=== PATIENT | male | born 1965 | race Caucasian/White ===

== ENCOUNTER 2019-10-19 06:56 | Day surgery (SDC) | payer BC ==
[~2019-10-19] VITALS: Ht 172.7 cm; Wt 118.2 kg
[2019-10-19] VITALS (12 sets, daily range): BP systolic 128–168; BP diastolic 85–112
[~2019-10-19 06:56] MED LIST: AMLO5TAB9 PO; BUSP30TA2 PO; FLUO20CA45 PO; HYDR25TA4 PO; LOSA100T57 PO; LOVA20TA2 PO; TRM50T PO
[2019-10-19] MEDS ORDERED: BUP/EPI 0.5% 1:200,000 (SENSORCAINE) 30 ML VIAL ONE (07:06)
[2019-10-19] MEDS ORDERED: ceFAZolin 2 GM/50 ML NS 50 ML IV ONE (07:15)
[2019-10-19] MEDS ORDERED: CATHETER FLUSH 10 ML SYR IV PRN (07:30)
[2019-10-19 07:35] LABS: BASOPHILS % (AUTO) 0 % (0-10); EOSINOPHILS # (AUTO) 0.3 10^3/uL (0.0-0.3); EOSINOPHILS % (AUTO) 4 % (0-10); HEMATOCRIT 46 % (40-54); HEMOGLOBIN 15.8 G/DL (13.3-17.7); LYMPHOCYTES # (AUTO) 2.4 X 10^3 (1.0-4.0); LYMPHOCYTES % (AUTO) 34 % (12-44); MEAN CORPUSCULAR HEMOGLOBIN 29 PG (25-34); MEAN CORPUSCULAR HGB CONC 34 G/DL (32-36); MEAN CORPUSCULAR VOLUME 84 FL (80-99); MEAN PLATELET VOLUME 9.7 FL (7.4-10.4); MONOCYTES # (AUTO) 0.7 X 10^3 (0.0-1.0); MONOCYTES % (AUTO) 10 % (0-12); NEUTROPHILS # (AUTO) 3.6 X 10^3 (1.8-7.8); NEUTROPHILS % (AUTO) 51 % (42-75); PLATELET COUNT 235 10^3/uL (130-400); RED CELL DISTRIBUTION WIDTH 13.7 % (10.0-14.5); WHITE BLOOD COUNT 7.1 10^3/uL (4.3-11.0)
[2019-10-19] MEDS: LACTATED RINGERS 1,000 ML IV PRN ×2 (07:35→09:35)
[2019-10-19] MEDS ORDERED: SEVOFLURANE (ULTANE) 15 ML INHAL SOLN ONE (07:40)
[2019-10-19] MEDS ORDERED: LIDOCAINE PF 2% 5 ML (XYLOCAINE) VIAL ONE (07:40)
[2019-10-19] MEDS ORDERED: proPOfol 200 MG/20 ML (DIPRIVAN) VIAL IV ONE (07:40)
[2019-10-19] MEDS ORDERED: GLYCOPYRROLATE 0.2 MG/ML (ROBINUL) 2 ML VIAL ONE (07:40)
[2019-10-19] MEDS ORDERED: DEXAMETHASONE 10 MG/ML (DECADRON) 1 ML VIAL ONE (07:40)
[2019-10-19] MEDS ORDERED: fentaNYL INJECTION 250 MCG/5 ML AMP ONE (07:40)
[2019-10-19] MEDS ORDERED: NEOSTIGMINE 1 MG/ML 5 ML SYRINGE ONE (07:40)
[2019-10-19] MEDS ORDERED: ONDANSETRON 4 MG/2 ML (SDV) Z0FRAN ONE (07:40)
[2019-10-19] MEDS ORDERED: ROCURONIUM 10 MG/ML 5 ML SYRINGE IV ONE ×2 (07:40→10:02)
[2019-10-19] MEDS ORDERED: MIDAZOLAM 2 MG/2 ML (VERSED) VIAL ONE (07:40)
--- NOTE | 2019-10-19 08:25 | Progress Note-Pre Operative ---
Pre-Operative Progress Note H&P Reviewed The H&P was reviewed, patient examined and no changes noted. Time Seen by Provider: 08:21 Date H&P Reviewed: Oct 19, 2019 Time H&P Reviewed: 08:22 Pre-Operative Diagnosis: Left inguinal Hernia, ??right inguinal hernia ELEANOR LYON DO Oct 19, 2019 08:25
--- NOTE | 2019-10-19 10:32 | Progress Note-Post Operative ---
Post-Operative Progess Note Surgeon (s)/Plaque Maker (s) Surgeon ELEANOR LYON DO Plaque Maker: Yesy Pre-Operative Diagnosis Left inguinal Hernia, ??right inguinal hernia Post-Operative Diagnosis Incarcerated Direct Left inguinal hernia Procedure & Operative Findings Date of Procedure 10/19/19 Procedure Performed/Findings Robotic Assisted Laparoscopic Left Inguinal hernia Anesthesia Type GET Estimated Blood Loss Estimated blood loss (mL): appx 20ml Specimens/Packing Specimens Removed none ELEANOR LYON DO Oct 19, 2019 10:32
[2019-10-19] MEDS ORDERED: ACHD5005 PO (10:33)
--- NOTE | 2019-10-19 10:34 | Discharge Inst-Surgical ---
Discharge Inst-Surgical Depart Medication/Instructions New, Converted or Re-Newed RX: RX Given to Pt/Family Patient Instructions Follow up Appt: Make appointment for 1 week. [phone] Instructions: No lifting greater than 20 pounds. No strenuous activity. May shower in 24 hours, no tub bath or soaking. Use incentive spirometer at home as directed. No Smoking Skin/Wound Care: May remove bandages in am. You need to leave the Dermabond on incision it will fall off on it's own. Symptoms to Report: Appetite Changes, Extremity Discoloration, Numbness/Tingling, Swelling Increased, Bleeding Excessive, Eyesight Changes, Pain Increased, Urine Color Change, Constipation(Persistent), Fever over 101 degree F, Pain/Pressure in chest, Urinating Difficulty, Cough Up/Vomit Blood, Heart Beat Irreg/Pounding, Pain/Pressure in jaw, Cramps in feet or legs, Lightheadedness, Pain/Pressure in shoulder, Diarrhea(Persistent), Memory Changes Suddenly, Questions/Concerns, Weight gain consecutive days, Dizziness/Fainting, Nausea/Vomiting, Shortness of Breath, Weight gain over 2 pounds If questions or concerns contact your physician Or seek help at emergency department. Activity Activity as Tolerated: Yes Activity Instructions: Avoid Stress to Incision Driving Instructions: No Driving/Refer to Dr. Sparks Discharge Diet: No Restrictions Diet After 24 Hours: Clear Liquid if Nauseous If Any Problems/Questions/Issu: Contact Your Physician, Go to Emergency Room Skin/Wound Care Infection Signs and Symptoms: Increased Redness, Foul Odor of Wound, Increased Drainage, Skin Itchy or Has a Rash, Increased Swelling, Temperature Above 101 F Wound Care Comment: heating pad to shoulder or neck tonight for pain. May get bruising into penis and scrotum Bathing Instructions: Shower Stitches/Danica/Dermabond Dis: Dermabond Ice Pack: Ice On and Off Site (incision sites as needed) ELEANOR LYON DO Oct 19, 2019 10:34
[2019-10-19] MEDS ORDERED: morphine INJ 10 MG/ML 1ML (SYR OR VIAL) ONE (11:10)
[2019-10-19] MEDS ORDERED: ONDANSETRON 4 MG/2 ML (SDV) Z0FRAN IVP PRN (11:15)
[2019-10-19] MEDS ORDERED: morphine INJ 10 MG/ML 1ML (SYR OR VIAL) IVP ONE (11:15)
[2019-10-19] MEDS ORDERED: MEPERIDINE (DEMEROL) INJ 50 MG/ML IVP ONE (11:15)
[2019-10-19] MEDS ORDERED: HYDROmorphone 2 MG/ML VIAL (DILAUDID) ONE (11:29)
[2019-10-19] MEDS ORDERED: HYDROmorphone 2 MG/ML VIAL (DILAUDID) IV ONE (11:45)
--- NOTE | 2019-10-19 15:41 | Anesthesia-General Post-Op ---
General Patient Condition Mental Status/LOC: Same as Preop Cardiovascular: Satisfactory Nausea/Vomiting: Absent Respiratory: Satisfactory Pain: Controlled Complications: Absent Post Op Complications Complications None Follow Up Care/Instructions Patient Instructions None needed. Anesthesia/Patient Condition Patient Condition Patient is doing well, no complaints, stable vital signs, no apparent adverse anesthesia problems. No complications reported per nursing. DELFIN CHAU CRNA Oct 19, 2019 15:41
--- NOTE | 2019-10-19 16:53 | OPERATIVE REPORT ---
DATE OF SERVICE: 10/19/2019 PREOPERATIVE DIAGNOSIS: Left inguinal hernia. POSTOPERATIVE DIAGNOSIS: Left inguinal hernia, but incarcerated with fat. SURGEON: Eleanor Meza DO MULE RIDER: Zuhair Hayward DO ANESTHESIA: General endotracheal tube. SPECIMENS: None. BLOOD LOSS: Less than 20 mL. FLUIDS: Per anesthesia. POSTOPERATIVE CONDITION: Stable. INDICATION FOR PROCEDURE: The patient is a 53-year-old male who has pain and bulge in left inguinal region diagnosed left inguinal hernia, wanted a robotic laparoscopic hernia repair. FINDINGS: The patient had a lot of fat incarcerated into looked like possibly direct inguinal hernia. Pictures taken. PROCEDURE NOTE: After informed consent was obtained, the patient was brought to the operating room, placed on the operating table in supine position, sterilely prepped and draped in normal fashion. Local lidocaine was used to infiltrate the skin above the umbilicus at the previous supraumbilical incision, made an incision with #11 blade, carried down through the skin into and subcutaneous tissue, deepened down to subcutaneous tissue with Bovie electrocautery down to fascia. Fascia was incised with Bovie electrocautery, bluntly entered the abdomen, swept a finger around, placed 0 Vicryl [id number] suture and placed limited trocar port under direct visualization. Created pneumoperitoneum and then placed 2 more ports in normal fashion using local lidocaine, 11 blade for stab incision and then using an 8 mm trocar port for the robot. Advanced under direct visualization. Once these were about 10 cm from the midline, one on the right and one on the left, once these were in then docked the robot, placed the patient in Trendelenburg and then started taking down the peritoneum, taking down transversely about 5 cm from the inguinal canal and then going down right along the medial umbilical ligament to create a hockey stick incision and carefully pushed in the preperitoneal fascia out away and pushing up of the other tissue going down medially and identifying Samuel's ligament then came across and found the direct inguinal hernia and started pulling out the fat, pulled out large amount of fat. Once this was out then continued freeing up freeing the peritoneum down so we could place a piece of mesh. Once we had everything freed up, took pictures and then elected to place an extra-large Bard 3DMax mesh. It was sutured at the Samuel's ligament with a 3-0 Vicryl suture, laid in nicely and then closed the peritoneum with a V-Loc suture closing from the lateral aspect getting tagging some of the mesh to hold in place and then running across the V-Loc and then down the hockey stick incision to close this, it closed nicely. Picture taken. At this point, then undocked the robot, allowed pneumoperitoneum to escape and then closed the supraumbilical incision with 0 Vicryl suture previously placed. Copiously irrigated incisions then closed the two 8 mm trocar port incisions with a 4-0 undyed Monocryl, 2 interrupted subcuticular stitches, closed supraumbilical incision with 3 interrupted 4-0 undyed Monocryl subcuticular stitches. Area was cleaned and dried and then Dermabond placed and Band-Aids. The patient tolerated the procedure. Sponge, instrument and needle count correct at the end of the case. Dr. Hayward assisted in this case helping to make incisions, close incisions and identifying anatomy. Job ID: [id number] DocumentID: [id number] Dictated Date: 10/19/2019 10:30:01 [employer]um[employer] Applier Date: 10/19/2019 16:53:02 Dictated By: ELEANOR MEZA DO
== END 2019-10-19 13:00 | disposition home or self-care (01) ==
LOC: SDC 06:56
PROVIDERS: ATTEND Surgery
DX: K40.30 Unilateral inguinal hernia, with obstruction, without gangrene, not specified as recurrent (principal); K21.9 Gastro-esophageal reflux disease without esophagitis; I10 Essential (primary) hypertension; E78.5 Hyperlipidemia, unspecified; E66.9 Obesity, unspecified; G47.33 Obstructive sleep apnea (adult) (pediatric); F41.9 Anxiety disorder, unspecified; Z68.39 Body mass index [BMI] 39.0-39.9, adult; Z79.899 Other long term (current) drug therapy; Z90.89 Acquired absence of other organs
CPT/HCPCS: 36415; 85025; 87081

== ENCOUNTER → 2020-05-21 | Outpatient (CLI) | payer BC ==
[~2020-05-21] MED LIST changes: +ACHD5005 PO; -FLUO20CA45 PO; +FLUO20CA46 PO
--- NOTE | 2020-05-21 16:04 | Diagnostic Imaging Report ---
INDICATION: Cough and shortness of breath. PA and lateral chest. FINDINGS: Heart size and pulmonary vascularity are normal. Lungs are clear. There are no effusions or pneumothoraces. IMPRESSION: No acute abnormalities in the chest. Dictated by: Dictated on workstation # [id number]
== END ==
LOC: RAD 14:59
PROVIDERS: ATTEND Family Medicine
DX: R06.02 Shortness of breath (principal); R05 Cough
CPT/HCPCS: 71046

== ENCOUNTER → 2020-05-29 | Outpatient (CLI) | payer BC ==
[~2020-05-29] MED LIST changes: +RT-ALBUTEROL SULF 2.5 MG/3 ML PRE-MIX VIAL INH ONE
== END ==
LOC: RT 14:58
PROVIDERS: ATTEND Family Medicine
DX: R06.00 Dyspnea, unspecified (principal)
CPT/HCPCS: 94060; 94726; 94729

== ENCOUNTER 2020-06-12 05:43 | Outpatient (CLI) | payer BC ==
[~2020-06-12] VITALS: Ht 172.7 cm; Wt 123.2 kg
[~2020-06-12 05:43] MED LIST changes: -RT-ALBUTEROL SULF 2.5 MG/3 ML PRE-MIX VIAL INH ONE
== END 2020-06-12 12:00 ==
LOC: PREOP 05:43
PROVIDERS: ATTEND Surgery
DX: Z01.818 Encounter for other preprocedural examination (principal)

== ENCOUNTER 2020-06-18 08:06 | Day surgery (SDC) | payer BC ==
[~2020-06-18] VITALS: Ht 172.7 cm; Wt 123.2 kg
[2020-06-18] MEDS ORDERED: LACTATED RINGERS 1,000 ML IV ONE (08:10)
[2020-06-18] MEDS ORDERED: LACTATED RINGERS 1,000 ML IV STA (08:17)
--- NOTE | 2020-06-18 08:23 | Progress Note-Pre Operative ---
Pre-Operative Progress Note H&P Reviewed The H&P was reviewed, patient examined and no changes noted. Time Seen by Provider: 08:21 Date H&P Reviewed: Jun 18, 2020 Time H&P Reviewed: 08:22 Pre-Operative Diagnosis: Hx of Polyps ELEANOR LYON DO Jun 18, 2020 08:23
[2020-06-18] MEDS ORDERED: ASPI-808 PO (08:33)
[2020-06-18 08:38] VITALS: BP 122/86
--- NOTE | 2020-06-18 08:46 | Progress Note-Post Operative ---
Post-Operative Progess Note Surgeon (s)/Manager Ct (s) Surgeon ELEANOR LYON DO Manager Ct: CARMEN Osborn Pre-Operative Diagnosis Hx of Polyps Post-Operative Diagnosis colon polyp Int hem Procedure & Operative Findings Date of Procedure 06/18/20 Procedure Performed/Findings Colon with hot bx Anesthesia Type IV sedation by SUPERVISOR INSPECTION ROOM Estimated Blood Loss Estimated blood loss (mL): scant Specimens/Packing Specimens Removed Descending colon polyp ELEANOR LYON DO Jun 18, 2020 08:46
--- NOTE | 2020-06-18 08:46 | Endoscopy Discharge Instruct ---
Endo Procedure/Findings Findings 1.: Polyp 2.: Internal Hemorrhoids Discharge Instructions - Activity: You might feel a little sleepy until tomorrow. This is due to the medicine you received to relax you. Until tomorrow, you should: NOT drive a car, operate machinery or power tools. NOT drink any alcoholic beverages. NOT make any important decisions or sign importortant papers. Do not return to work until tomorrow, unless otherwise instructed. Resume previous activities tomorrow. Diet: Start by taking liquids. If you tolerate liquids, advance to solid food. 1.: Colonscopy in 5 years Notify Physician - If you experience excessive bleeding, unusual abdominal pain, fever, or chest pain, contact your doctor immediately. ELEANOR LYON DO Jun 18, 2020 08:46
[2020-06-18] MEDS ORDERED: MIDAZOLAM 2 MG/2 ML (VERSED) VIAL ONE (09:02)
[2020-06-18] MEDS ORDERED: PROPOFOL INJECTION 50 ML IV ONE (09:02)
[2020-06-18 09:31] VITALS: BP 116/72
[2020-06-18 09:35] VITALS: BP 105/63
[2020-06-18 10:05] VITALS: BP 122/82
--- NOTE | 2020-06-18 10:08 | NUR ---
PT READY TO BE D/C- WAITING ON RIDE FROM [facility].
[2020-06-18 10:36] VITALS: BP 122/82
--- NOTE | 2020-06-18 12:37 | Anesthesia-General Post-Op ---
MAC Patient Condition Mental Status/LOC: Same as Preop Cardiovascular: Satisfactory Nausea/Vomiting: Absent Respiratory: Satisfactory Pain: Controlled Complications: Absent Post Op Complications Complications None Follow Up Care/Instructions Patient Instructions None needed. Anesthesiology Discharge Order Discharge Order Patient is doing well, no complaints, stable vital signs, no apparent adverse anesthesia problems. No complications reported per nursing. TRENT WIN CRNA Jun 18, 2020 12:37
--- NOTE | 2020-06-19 05:25 | OPERATIVE REPORT ---
DATE OF SERVICE: 06/18/2020 PREOPERATIVE DIAGNOSES: History of colon polyps. POSTOPERATIVE DIAGNOSES: Diverticula, internal hemorrhoids. PROCEDURE: Colonoscopy. SURGEON: Jackson Meza DO TURNER SPLITTER MACHINE OPERATOR: JUAN Rosas. SPECIMENS: None. BLOOD LOSS: None. FLUIDS: Per anesthesia. POSTOPERATIVE CONDITION: Stable. INDICATION FOR PROCEDURE: The patient is a 54-year-old male who has a history of colon polyps, needed a surveillance colonoscopy. FINDINGS: The patient had some diverticula and internal hemorrhoids, but no polyps found. PROCEDURE NOTE: After informed consent was obtained, the patient was brought to the endoscopy suite, placed in bed in left lateral decubitus position. He was administered IV sedation by the CHILDCARE AIDE who then monitored his vitals the entire time, heart rate, blood pressure and pulse ox and the scope was inserted, pushed all the way into about 160 cm, able to get to the cecum. On the way in, noted some diverticula, took a picture. Once in the cecum, took a picture of appendiceal orifice and then slowly withdrew the scope insufflating to look circumferential at blancas looking at the cecum, up the ascending colon to the hepatic flexure and then down the transverse colon, splenic flexure, into the descending colon down in sigmoid and finally into the rectum, retroflexed in rectal vault, saw some very minimal internal hemorrhoids, took a picture and then removed the scope. The patient tolerated the procedure. He was recovered in endoscopy suite. Job ID: [id number] DocumentID: [id number] Dictated Date: 06/18/2020 18:41:16 Place Change Roof Bolter Date: 06/19/2020 05:25:10 Dictated By: JACKSON MEZA DO
== END 2020-06-18 10:40 | disposition home or self-care (01) ==
LOC: ENDO 08:06
PROVIDERS: ATTEND Surgery
DX: Z12.11 Encounter for screening for malignant neoplasm of colon (principal); K57.90 Diverticulosis of intestine, part unspecified, without perforation or abscess without bleeding; I10 Essential (primary) hypertension; E78.5 Hyperlipidemia, unspecified; F41.9 Anxiety disorder, unspecified; F32.9 Major depressive disorder, single episode, unspecified; K64.8 Other hemorrhoids; Z86.010 Personal history of colon polyps; Z79.899 Other long term (current) drug therapy

== ENCOUNTER 2021-09-07 20:51 | Emergency (ER) | payer OTHER, BC ==
[~2021-09-07] VITALS: Ht 172 cm; Wt 122.0 kg
[~2021-09-07 20:51] MED LIST changes: +AMLO-250 PO; -AMLO5TAB9 PO; +ASPI-808 PO; -FLUO20CA46 PO; +FLUO20CA48 PO
[2021-09-07] MEDS ORDERED: KETOROLAC 60 MG/2 ML VIAL IM STA (21:16)
--- NOTE | 2021-09-07 21:31 | ED Fall/Injury ---
General Chief Complaint: Chest Wall Stated Complaint: R SIDED RIB PAIN, FELL Nursing Triage Note: PT TO ER BY WC WITH C/O RIB PAIN ON LOWER LEFT AND BACK AFTER A FALL AROUND 1800. PT SAID HE FELL INTO A TRAILER AFTER THE TAILGATE OF A TRUCK CAME UNLATCHED Source: patient Exam Limitations: no limitations History of Present Illness Date Seen by Provider: Sep 07, 2021 Time Seen by Provider: 21:10 Initial Comments Here with report of fall from the back of a pickup truck. He apparently was climbing over the tailgate and was using the tailgate as handhold when it came open. He fell back against a trailer on the left side ribs. No loss of consciousness and no other injury noted or reported. This occurred about 1800. 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 He was able to continue that and was ultimately encouraged to come here by his work. He has not taken anything for pain. Denies other injury or concerns. Believes he likely has a rib fracture. He does have pain with deep breathing but is not short of breath otherwise. Does have history of hypertension and is on losartan. Denies abdominal pain or blood in urine or difficulty with urination. Occurred: this evening (6 PM) Severity: mild, moderate Injuries/Pain Location: chest Context: other Loss of Consciousness: no loss of consciousness Modifying Factors: Worse With Movement (Deep breathing) Associated Symptoms (Fall): No Abdominal Pain; Chest Pain, Muscle Spasms (Chest with deep breathing); No Nausea/Vomiting, No Neck Pain, No Shortness of Air, No Trouble Walking Allergies and Home Medications Allergies Coded Allergies: No Known Drug Allergies (Unverified , 10/14/19) Patient Home Medication List Home Medication List Reviewed: Yes Amlodipine Besylate (Amlodipine Besylate) 5 Mg Tablet, 5 MG PO DAILY, (Reported) Entered as Reported by: JOEL THAKUR on 10/14/19 1146 Aspirin (Aspirin) 325 Mg Tablet, 325 MG PO DAILY, (Reported) Entered as Reported by: BLESSING HERNANDEZ on 06/18/20 0833 Buspirone HCl (Buspirone HCl) 30 Mg Tablet, 30 MG PO BID, (Reported) Entered as Reported by: JOEL THAKUR on 10/14/19 1146 Hydrochlorothiazide (Hydrochlorothiazide) 25 Mg Tablet, 25 MG PO DAILY, (Reported) Entered as Reported by: JOEL THAKUR on 10/14/19 1146 Losartan Potassium (Losartan Potassium) 100 Mg Tablet, 100 MG PO DAILY, (Reported) Entered as Reported by: JOEL THAKUR on 10/14/19 1146 Lovastatin (Lovastatin) 20 Mg Tablet, 20 MG PO DAILY, (Reported) Entered as Reported by: JOEL THAKUR on 10/14/19 1146 Review of Systems Review of Systems Constitutional: see HPI; No chills, No fever Ears, Nose, Mouth, Throat: no symptoms reported Respiratory: No cough; other (Pain with deep breathing) Cardiovascular: chest pain (Left posterior ribs); No palpitations Gastrointestinal: No abdominal pain, No nausea, No vomiting Musculoskeletal: joint pain, muscle pain Skin: see HPI, change in color, lesions (Left posterior ribs) Past Tekyost-X[place]iaf-Utbo[place] Hx Patient Social History Tobacco Use?: No Substance use?: No Alcohol Use?: Unable to obtain Pt feels they are or have been: No Immunizations Up To Date Influenza Vaccine Up-to-Date: No; Not Current First/Initial COVID19 Vaccinat: FEBRUARY 2021 Second COVID19 Vaccination Ziyad: MARCH 2021 COVID19 Vaccine Coding Educator: KERI Seasonal Allergies Seasonal Allergies: No Past Medical History Surgeries: Yes (inguinal hernia x3, hydrocelectomy, ) Appendectomy Respiratory: No Currently Using CPAP: No Cardiac: Yes High Cholesterol, Hypertension Neurological: No Genitourinary: No Gastrointestinal: No Musculoskeletal: No Endocrine: No HEENT: No Cancer: No Psychosocial: Yes Anxiety Integumentary: No Blood Disorders: No Family Medical History Reviewed Nursing Family Hx Physical Exam Vital Signs Vital Signs - First Documented 09/07/21 21:05 Temp 36.9 Pulse 80 Resp 18 B/P (MAP) 154/92 (112) Pulse Ox 96 O2 Delivery Room Air Capillary Refill : Height, Weight, BMI Height: '" Weight: lbs. oz. kg; 41.00 BMI Method: General Appearance: WD/WN, mild distress, obese Neck: non-tender, full range of motion, supple, normal inspection Cardiovascular: regular rate, rhythm, no murmur Respiratory: lungs clear, normal breath sounds Gastrointestinal: non tender, soft Back: no vertebral tenderness, other (Contusion to left posterior rib in the T6 to T8 area) Neurologic/Psychiatric: alert, oriented x 3 Skin: warm/dry, ecchymosis (Ecchymosis in the left posterior ribs area approximately 2 cm vertically by 8 cm horizontally with thin central abrasion consistent with injury of falling against the trailer.) Jordyn Coma Score Best Eye Response: (4) Open Spontaneously Best Verbal Response: (5) Oriented Best Motor Response: (6) Obeys Commands Progress/Results/Core Measures Results/Orders My Orders Orders - JANELLE VEGAS MD Ct Chest Wo (09/07/21 21:16) Ketorolac Injection (Toradol Injection) (09/07/21 21:16) Vital Signs/I&O 09/07/21 21:05 Temp 36.9 Pulse 80 Resp 18 B/P (MAP) 154/92 (112) Pulse Ox 96 O2 Delivery Room Air Blood Pressure Mean: 112 Progress Progress Note : Progress Note Seen and evaluated. I did discuss options for evaluation including chest x-ray and CT. Patient is larger and I do believe it will be difficult to see rib fractures well with x-ray technique. We did discuss CT without contrast as an option. I would prefer to do without contrast as this is isolated injury and not worried about significant bleeding so contrast would not be needed. Contusion, pneumothorax and rib fracture injury will be adequately evaluated with CT scan without contrast so this was chosen to minimize impact from contrast. Toradol 60 mg IM. Monitor patient. 1011: CT shows rib fractures. See report below. Incentive spirometer with teaching given. Go pack of hydrocodone given. Discharged home with return precautions. Patient verbalized understanding instructions and agreement with plan. Diagnostic Imaging Diagonstic Imaging: CT Plain Films/CT/US/NM/MRI: chest Comments NAME: ANNETTE CALDERON [facility] REC#: [id number] PT STATUS: REG ER : 1965 PHYSICIAN: JANELLE VEGAS MD ADMIT DATE: 09/07/21/ER Draft Date of Exam:09/07/21 CT CHEST WO PROCEDURE: CT chest without contrast. TECHNIQUE: Multiple contiguous axial images were obtained through the chest without the use of intravenous contrast. Auto Exposure Controls were utilized during the CT exam to meet ALARA standards for radiation dose reduction. INDICATION: 55-year-old male, rib pain on lower left and back after a fall earlier this evening. Fall into a trailer. CORRELATION: None. FINDINGS: Evaluation of the mediastinal structures is limited given lack of contrast. No suggestion for significant mediastinal hematoma. Calcified lymph nodes in and around the azygos vein and right hilum. The heart size is unremarkable. Scattered coronary artery calcification. No significant pericardial effusion. Thoracic aorta normal in contour. GE junction unremarkable. Minimal atelectasis at the lung bases. No significant contusion, effusion and/or pneumothorax. Two adjacent small sub-5 mm nodules in the subpleural region of right lower lobe. Similar one in lateral aspect of right lower lobe. Additional calcified granulomas in central right lung. Minimally displaced left lateral rib 10 and likely nondisplaced rib 8 and 9 fractures. Minimal amount of adjacent overlying soft tissue contusion. The visualized portion of the upper abdomen is unremarkable. IMPRESSION: Minimally displaced left lateral rib 10 and likely nondisplaced lateral rib 8 and 9 fractures. No left-sided pneumothorax or significant pulmonary contusion. Dictated on workstation # [id number] Dict: 09/07/212145 Trans: 09/07/212156 [facility] [id number] Interpreted by: BRIGIDA LEO DO Electronically signed by: Reviewed: Reviewed by Me Departure Impression Primary Impression: Ribs, multiple fractures Qualified Codes: S22.42XA - Multiple fractures of ribs, left side, initial encounter for closed fracture Disposition: 01 HOME, SELF-CARE Condition: Stable Departure-Patient Inst. Decision time for Depature: 22:12 Referrals: RHYS ADEN MD (PCP/Family) Primary Care Physician Patient Instructions: Blunt Chest Trauma (DC), Rib Fracture (DC) Add. Discharge Instructions: All discharge instructions reviewed with patient and/or family. Voiced understanding. Take medication as directed. You may take Tylenol/acetaminophen 1000 mg every 6-8 hours as needed for pain if you are not taking the prescribed pain medicine. Do not take both at the same time as they both have acetaminophen in them. You may also take ibuprofen 600 mg every 8 hours as needed for pain. Use the incentive spirometer several times per hour while awake. You may use ice packs to area of concern 20 minutes/h as needed to reduce swelling and pain. Return for worse pain, fever, vomiting, blood in your urine or stool, coughing up blood, weakness, breathing problems or other concerns as needed. Scripts Hydrocodone Bit/Acetaminophen (HYDROcodone/APAP 5 MG/325 MG TAB) 1 Tab Tab 1 TAB PO Q6H for Pain, #16 TAB 0 Refills Prov: JANELLE VEGAS MD 09/07/21 JANELLE VEGAS MD Sep 07, 2021 21:31
--- NOTE | 2021-09-07 21:58 | Diagnostic Imaging Report ---
PROCEDURE: CT chest without contrast. TECHNIQUE: Multiple contiguous axial images were obtained through the chest without the use of intravenous contrast. Auto Exposure Controls were utilized during the CT exam to meet ALARA standards for radiation dose reduction. INDICATION: 55-year-old male, rib pain on lower left and back after a fall earlier this evening. Fall into a trailer. CORRELATION: None. FINDINGS: Evaluation of the mediastinal structures is limited given lack of contrast. No suggestion for significant mediastinal hematoma. Calcified lymph nodes in and around the azygos vein and right hilum. The heart size is unremarkable. Scattered coronary artery calcification. No significant pericardial effusion. Thoracic aorta normal in contour. GE junction unremarkable. Minimal atelectasis at the lung bases. No significant contusion, effusion and/or pneumothorax. Two adjacent small sub-5 mm nodules in the subpleural region of right lower lobe. Similar one in lateral aspect of right lower lobe. Additional calcified granulomas in central right lung. Minimally displaced left lateral rib 10 and likely nondisplaced rib 8 and 9 fractures. Minimal amount of adjacent overlying soft tissue contusion. The visualized portion of the upper abdomen is unremarkable. IMPRESSION: Minimally displaced left lateral rib 10 and likely nondisplaced lateral rib 8 and 9 fractures. No left-sided pneumothorax or significant pulmonary contusion. Dictated by: Dictated on workstation # [id number]
[2021-09-07] MEDS ORDERED: ACHD5005 PO (22:16)
[2021-09-07 22:29] VITALS: BP 150/93
== END 2021-09-07 22:30 | disposition home or self-care (01) ==
LOC: EDUNIT# 20:51 → ER 20:54
DX: S22.42XA Multiple fractures of ribs, left side, initial encounter for closed fracture (principal); I10 Essential (primary) hypertension; E78.00 Pure hypercholesterolemia, unspecified; E66.9 Obesity, unspecified; F41.9 Anxiety disorder, unspecified; Z68.41 Body mass index [BMI] 40.0-44.9, adult; Z79.82 Long term (current) use of aspirin; Z79.899 Other long term (current) drug therapy; W17.89XA Other fall from one level to another, initial encounter
CPT/HCPCS: 71250

== ENCOUNTER → 2023-02-11 | Outpatient (CLI) | payer BC, OTHER ==
[2023-02-11 17:54] LABS: HEMATOCRIT 50 % (40-54); HEMOGLOBIN 17.5 g/dL (13.3-17.7); MEAN CORPUSCULAR HEMOGLOBIN 30 pg (25-34); MEAN CORPUSCULAR HGB CONC 35 g/dL (32-36); MEAN CORPUSCULAR VOLUME 85 fL (80-99); MEAN PLATELET VOLUME 10.1 fL (9.0-12.2); PLATELET COUNT 271 10^3/uL (130-400); WHITE BLOOD COUNT 9.1 10^3/uL (4.3-11.0)
[2023-02-11 17:57] LABS: POTASSIUM 3.8 MMOL/L (3.6-5.0)
[2023-02-11 17:58] LABS: CALCIUM 9.1 MG/DL (8.5-10.1)
[2023-02-11 17:59] LABS: TOTAL PROTEIN 7.3 GM/DL (6.4-8.2)
[2023-02-11 18:01] LABS: BILIRUBIN,TOTAL 0.8 MG/DL (0.1-1.0)
[2023-02-11 18:03] LABS: CREATININE SERUM 1.13 MG/DL (0.60-1.30)
== END ==
LOC: LAB 17:34
PROVIDERS: ATTEND Registered Nurse Critical Care Medicine
DX: M79.605 Pain in left leg (principal); R60.0 Localized edema
CPT/HCPCS: 36415; 80053; 83880; 85027; 85379

== ENCOUNTER → 2023-02-13 | Outpatient (CLI) | payer OTHER ==
--- NOTE | 2023-02-13 11:14 | Diagnostic Imaging Report ---
PROCEDURE: US left lower extremity venous. TECHNIQUE: Multiple real-time grayscale images were obtained over the left lower extremity in various projections. Additional duplex Doppler and color Doppler images were also obtained. INDICATION: Left leg pain. FINDINGS: There is no evidence of left lower extremity DVT. Left lower extremity deep venous system shows normal compressibility with normal response to augmentation and Valsalva. No fluid collection or mass is detected. IMPRESSION: No evidence of left lower extremity DVT. Dictated by: Dictated on workstation # [id number]
== END ==
LOC: RAD 10:37
PROVIDERS: ATTEND Family Medicine
DX: M79.662 Pain in left lower leg (principal)